=== PATIENT | male | born 1995 | race Caucasian/White ===

== ENCOUNTER 2021-03-18 16:05 | Emergency (ER) | payer OTHER, SELFPAY ==
[2021-03-18 16:12] VITALS: BP 143/88; PULSE 70; RESP 18; TEMP 36.8; O2SAT 95; BMI 21.0
--- NOTE | 2021-03-18 16:22 | W.ED.EXTPRO ---
HPI - Extremity Problem General: Chief complaint: Extremity Problem,Nontraumatic Stated complaint: JAW PAIN, L SHOULDER PAIN/NUMBNESS Time Seen by Provider: 03/18/21 16:20 History of Present Illness: HPI Narrative: Patient is a 25-year-old male comes to the ED with left shoulder blade and left neck/jaw pain. Patient says symptoms started approximately 2 weeks ago. Patient says he works at [employer] and is lifting heavy boxes throughout the day and he thinks that is what potentially caused his pain. He has a history of back pain due to [employer] job and lifting in the past. He says jaw pain only occurs when he is moving his jaw and he has no pain at rest. Associated symptoms: Deny chest pain, fever(s) or rash Review of Systems Const: Denies: fever(s), chills or fatigue Eyes: Denies: change in vision or eye discomfort ENMT: Reports: other (Left side jaw pain); Denies: throat pain, odynophagia, nasal discharge or nasal congestion Card: Denies: chest pain, palpitations, edema, swelling of feet/ankles, dyspnea on exertion or orthopnea Resp: Denies: dyspnea, productive cough or non-productive cough GI: Denies: abdominal pain, nausea, vomiting, diarrhea, constipation or hematochezia : Denies: flank pain, difficulty urinating, dysuria or hematuria Musc: Reports: back pain; Denies: neck pain or extremity swelling Skin/Breast: Denies: rash or new lesions Neuro: Denies: headache(s), numbness in extremities or weakness in extremities Physical Exam Const: COMMON NORMALS: no acute distress, patient oriented x3, healthy appearing and alert GENERAL APPEARANCE: cooperative and comfortable HENMT: COMMON NORMALS: normocephalic HEAD & SCALP: normocephalic MOUTH: Normal oral and palatal mucosa present THROAT: posterior oropharynx normal and uvula midline Neck/C-Spine: COMMON NORMALS: supple GENERAL: Yes normal visual inspection Resp: COMMON NORMALS: normal respiratory effort, No retractions, No use of accessory muscles and clear to auscultation bilaterally AUSCULTATION: clear to auscultation bilaterally Cardio: COMMON NORMALS: regular rate, regular rhythm, S1 normal heart sound present, S2 normal heart sound present, No gallops present (Cardio), No clicks present (Cardio), No murmurs present (Cardio) and Peripheral pulses 2+ throughout RATE: regular rate RHYTHM: regular rhythm HEART SOUNDS: S1 normal heart sound present and S2 normal heart sound present PERIPHERAL PULSES: Peripheral pulses 2+ throughout GI: COMMON NORMALS: Normal to inspection, nondistended, normoactive bowel sounds present, Soft to palpation, non-tender and no masses PALPATION: Yes Soft to palpation : COMMON NORMALS: Yes no CVA tenderness BLADDER/KIDNEY EXAM: Yes no CVA tenderness Back/Pelvis: COMMON NORMALS: no CVA tenderness THORACIC SPINE/UPPER BACK: Yes normal to inspection, Yes pain with ROM, No thoracic spinal tenderness and No paraspinal muscle tenderness Extremity: COMMON NORMALS: normal to inspection Neuro: COMMON NORMALS: patient oriented x3 and moves all extremities SENSORIUM/ORIENTATION: Yes alert Skin: GENERAL SKIN EXAM: dry skin Course Vital Signs: Vital signs: Vital Signs Temperature 98.3 F 03/18/21 16:12 Pulse Rate 70 03/18/21 16:12 Respiratory Rate 18 03/18/21 16:12 Blood Pressure 143/88 03/18/21 16:12 Pulse Oximetry 95 03/18/21 16:12 MDM - Extremity (Nontraumatic) MDM Narrative: Medical decision making narrative: Patient is a 25-year-old male who comes to the ED thoracic back pain and left jaw pain. Patient says both symptoms started 2 weeks ago. His back pain is located on the left thoracic back region he says it is do to lifting boxes at [employer]. Jaw pain only occurs when he is moving jaw and he has no pain when jaw at rest. He denies any other symptoms. Upon exam patient is healthy 25-year-old male in no acute distress or pain. He sitting comfortably on exam chair when entered the room. He has some pain in his left side thoracic back region with range of motion but no point tenderness or spinal tenderness. Patient's left jaw has no palpable clicking or locking upon movement. Patient was diagnosed with left-sided thoracic back pain and jaw pain and he was discharged home with prescription for methocarbamol. He was told to continue taking rhtn-moi-sliwthe ibuprofen to help with pain. Apply cold pack and rest help with symptoms. Patient has follow-up with PCP in 2 weeks. Return to ED precautions given. Patient understood agree with plan. Discharge Plan Discharge Patient Disposition: Home Clinical Impression: Jaw pain Left-sided thoracic back pain Qualifiers: Chronicity: acute Qualified Code(s): M54.6 - Pain in thoracic spine Condition: Stable Prescriptions: New methocarbamol 750 mg tablet 750 mg PO Q8H Qty: 20 RF: 0 Discharge Orders: Discharge ED (Routine); Ordered 03/18/21 Ordered By: John Ceja Discharge Diet: Regular Discharge Activity: Resume usual activity Patient Instructions: Temporomandibular Disorder (ED), Back Pain (ED) Activity Restrictions/Additional Instructions: Follow-up with medical provider as directed in 7 to 10 days for reevaluation. Take medications as prescribed. Methocarbamol is a muscle relaxer and can cause some drowsiness so take at night before bed. Take uivj-rzb-uddrgrg ibuprofen up to 800 mg every 8 hours to help with pain. Apply cold pack on back to help with symptoms. Return to the ER or your medical provider if condition worsens. Please read and understand discharge instructions. If any questions, please ask. Coding Level of Care Code ED Furniture Sales Associate for Daniel Salazar Exam Comprehensive
== END 2021-03-18 16:34 | disposition home or self-care (01) ==
PROVIDERS: Emergency Provider Physician Assistant
DX: R68.84 Jaw pain (principal); M54.6 Pain in thoracic spine
CPT/HCPCS: 99282

== ENCOUNTER 2021-03-26 21:03 | Emergency (ER) | payer OTHER, SELFPAY ==
[2021-03-26 21:07] VITALS: BP 127/80; PULSE 90; RESP 18; TEMP 36.4; O2SAT 100; BMI 21.0
--- NOTE | 2021-03-26 21:23 | ED_ITS ---
HPI - General Adult General: Chief complaint: General Medical Stated complaint: CONVULSING AND SHAKING ON THE GROUND Time Seen by Provider: 03/26/21 21:17 Source: patient Mode of arrival: ambulatory Limitations: no limitations History of Present Illness: HPI narrative: 25-year-old male states he is at work now ago. He states he been working outside started having a seizure. S sahra was witnessed and lasted less than 1 minute. He did have a period of being postictal. He denies any headache and states he feels fine currently. He has never had a seizure in the past. He states he may have been dehydrated because he been working outside all day. Denies any recent injuries. Onset (ago): hour(s) Associated symptoms: Deny chest pain, dyspnea, nausea, rash or vomiting Review of Systems Const: Denies: fever(s), chills, body aches or change in appetite Eyes: Denies: blurry vision or eye discomfort ENMT: Denies: throat pain or dental pain Card: Denies: chest pain Resp: Denies: dyspnea GI: Denies: abdominal pain, nausea, vomiting or diarrhea : Denies: dysuria Musc: Denies: neck pain or back pain Skin/Breast: Denies: rash Neuro: Reports: seizure-like activity Psych: Denies: depression Delbert/Lymph: Denies: easy bruising All/Imm: Denies: urticaria Physical Exam Const: COMMON NORMALS: no acute distress, patient oriented x3 and healthy appearing HENMT: COMMON NORMALS: normocephalic and atraumatic HEAD & SCALP: normocephalic and atraumatic Eye: COMMON NORMALS: Equal, round and reactive pupils present and EOMs intact bilaterally PUPIL: Yes Equal, round and reactive pupils present Neck/C-Spine: COMMON NORMALS: full ROM and supple Chest: COMMONS NORMALS: normal inspection of the chest and normal palpation of entire chest wall Resp: COMMON NORMALS: normal respiratory effort, No retractions, No use of accessory muscles and clear to auscultation bilaterally AUSCULTATION: clear to auscultation bilaterally Cardio: COMMON NORMALS: regular rate, regular rhythm and No murmurs present (Cardio) RATE: regular rate RHYTHM: regular rhythm GI: COMMON NORMALS: Normal to inspection, nondistended, normoactive bowel sounds present, Soft to palpation, non-tender and no masses PALPATION: Yes Soft to palpation Extremity: COMMON NORMALS: normal to inspection and full ROM Neuro: COMMON NORMALS: patient oriented x3, moves all extremities and no focal motor deficits Psych: COMMON NORMALS: mental status grossly normal, Normal thought process present and cooperative THOUGHT PROCESS: Normal thought process present Skin: COMMON NORMALS: no rashes or lesions noted and no wounds GENERAL SKIN EXAM: no rashes or lesions noted Course Vital Signs: Vital signs: Vital Signs Temperature 97.6 F 03/26/21 21:07 Pulse Rate 90 03/26/21 21:07 Respiratory Rate 18 03/26/21 21:07 Blood Pressure 127/80 03/26/21 21:07 Pulse Oximetry 100 03/26/21 21:07 MDM - General Adult MDM Narrative: Medical decision making narrative: Patient presents here with a likely seizure. His CT head here is normal electrolytes are normal. He is stable for discharge. He has not had a seizure in the past. He is to follow-up PCP and return if worsening. Lab Data: Labs: Lab Results 03/26/21 Range/Units 21:43 Sodium 134 L (136-145) mmol/L Potassium 3.9 (3.5-5.1) mmol/L Chloride 101 (98-107) mmol/L Carbon Dioxide 23 (22-29) mmol/L Anion Gap 13.9 (5-19) BUN 22 H (6-20) mg/dL Creatinine 0.8 (0.7-1.2) mg/dL GFR Calculation 119.8 (90-130) mL/min Glucose 83 (65-115) mg/dL Calculated Osmolal ity 280 L (285-295) mOsm/k g Calcium 8.2 L (8.5-10.5) mg/dL Imaging Data^: CT Head: Radiologist's impression: [facility] [address] [place] [address] CT Scan Report Signed Patient: Reuben Delcid Unit #: [id number] : 1995 Age/Sex: 25 / M ADM Date: 03/26/21 Loc: ER Room/Bed: Attending Dr: Ordering Provider/Ordering MD: Jeremias Bain MD Date of Service: 03/26/21 Procedure(s): CT head wo con* [id number] Accession Number(s): [id number] Report Number: [id number] PROCEDURE INFORMATION: Exam: CT Head Without Contrast Exam date and time: 03/26/2021 9:23 PM Age: 25 years old Clinical indication: Patient HX: Witnessed seizure. TECHNIQUE: Imaging protocol: Computed tomography of the head without contrast. Radiation optimization: All CT scans at this facility use at least one of these dose optimization techniques: automated exposure control; mA and/or kV adjustment per patient size (includes targeted exams where dose is matched to clinical indication); or iterative reconstruction. COMPARISON: No relevant prior studies available. RADIATION DOSE METRICS: Total DLP (mGy-cm): 876.1 FINDINGS: Brain: No hemorrhage. No edema, mass effect or midline shift. Cerebral ventricles: No ventriculomegaly. Bones/joints: No acute fracture. Paranasal sinuses: Visualized sinuses are unremarkable. No fluid levels. Mastoid air cells: No mastoid effusion. Soft tissues: Unremarkable. CT/CT head wo con* [id number] IMPRESSION: No acute intracranial abnormality. Discharge Plan Discharge Patient Disposition: Home Clinical Impression: Seizure Condition: Stable Prescriptions: No Action cyclobenzaprine 10 mg tablet 10 mg PO TID PRN (Reason: muscle cramps) RF: 0 bupropion HCl 300 mg Tablet Extended Release 24 Hr 300 mg PO DAILY RF: 0 methocarbamol 750 mg tablet 750 mg PO Q8H Qty: 20 RF: 0 Discharge Orders: Discharge ED (Routine); Ordered 03/26/21 Ordered By: Jeremias Bain Discharge Diet: Advance as tolerated Discharge Activity: Resume usual activity Patient Instructions: New-Onset Seizure in Adults (ED) Coding Level of Care Code ED [employer] for [employer]g Fwd Exam Comprehensive
[2021-03-26 22:04] LABS: Anion Gap 13.9 (5-19); Blood Urea Nitrogen 22 mg/dL (6-20); Calcium 8.2 mg/dL (8.5-10.5); Carbon Dioxide 23 mmol/L (22-29); Chloride 101 mmol/L (98-107); Glomerular Filtration Rate 119.8 mL/min (90-130); Glucose 83 mg/dL (65-115); Osmolality Calculated 280 mOsm/kg (285-295); Potassium 3.9 mmol/L (3.5-5.1); Sodium 134 mmol/L (136-145)
== END 2021-03-26 22:19 | disposition home or self-care (01) ==
PROVIDERS: Emergency Provider Emergency Medicine
DX: R56.9 Unspecified convulsions (principal)
CPT/HCPCS: 70450; 80048; 99282

== ENCOUNTER → 2023-08-05 14:47 | Outpatient (BNVA) | payer OTHER, SELFPAY | PROVIDERS: PCP Emergency Medicine Emergency Medical Services; Referring Provider Emergency Medicine Emergency Medical Services; Visit Provider Nurse Practitioner Family | DX: L65.9 Nonscarring hair loss, unspecified (principal); D22.9 Melanocytic nevi, unspecified; L57.8 Other skin changes due to chronic exposure to nonionizing radiation | CPT/HCPCS: 99203 ==

== ENCOUNTER 2024-02-03 09:26 | Outpatient (CLI) | payer OTHER, SELFPAY ==
[2024-02-03 11:03] LABS: Folate Level 10.4 ng/mL (4.5-32.2)
[2024-02-03 11:05] LABS: 25 Hydroxy Vitamin D 35 ng/mL (30-100); Ferritin 135 ng/mL (30-400); Thyroid Stimulating Hormone 1.97 uIU/mL (0.27-4.20); Vitamin B12 590 pg/mL (232-1245)
[2024-02-03 11:48] LABS: Free T4 Free Thyroxine 1.38 ng/dL (0.82-1.77)
[2024-02-06 12:09] LABS: Vit D 1,25 (Oh)2, Total 33 pg/mL (18-72); Vit D2 1,25 (Oh)2 <8 pg/mL; Vit D3 1,25 (Oh)2 33 pg/mL
[2024-02-07 14:54] LABS: Zinc Level, Serum or Plasma 90 mcg/dL (60-130)
== END 2024-02-03 09:27 | disposition home or self-care (01) ==
LOC: LAB 09:28
PROVIDERS: PCP Emergency Medicine Emergency Medical Services; Visit Provider Nurse Practitioner Family
DX: L65.0 Telogen effluvium (principal); E55.9 Vitamin D deficiency, unspecified; D18.01 Hemangioma of skin and subcutaneous tissue; L57.8 Other skin changes due to chronic exposure to nonionizing radiation; D22.9 Melanocytic nevi, unspecified
CPT/HCPCS: 36415; 82306; 82607; 82652; 82728; 82746; 84439; 84443; 84630; 99214

== ENCOUNTER → 2024-03-10 09:40 | Outpatient (BNVA) | payer OTHER, SELFPAY | PROVIDERS: PCP Emergency Medicine Emergency Medical Services; Visit Provider Nurse Practitioner Family | DX: D48.5 Neoplasm of uncertain behavior of skin (principal); D22.39 Melanocytic nevi of other parts of face; L57.8 Other skin changes due to chronic exposure to nonionizing radiation; L65.9 Nonscarring hair loss, unspecified; L81.4 Other melanin hyperpigmentation | CPT/HCPCS: 11102; 99213 ==

== ENCOUNTER → 2024-08-31 14:40 | Outpatient (BNVA) | payer OTHER, SELFPAY | PROVIDERS: PCP Emergency Medicine Emergency Medical Services; Visit Provider Nurse Practitioner Family | DX: L57.8 Other skin changes due to chronic exposure to nonionizing radiation (principal); D22.39 Melanocytic nevi of other parts of face; L64.8 Other androgenic alopecia | CPT/HCPCS: 99214 ==

== ENCOUNTER 2025-07-26 15:04 | Outpatient (CLI) | payer OTHER, SELFPAY ==
--- NOTE | 2025-07-26 15:12 | US_ITS ---
WS: [id number] TESTICULAR ULTRASOUND HISTORY: LUMP R TESTICLE BASE COMPARISON: None available. TECHNIQUE: Real-time and color Doppler imaging utilized to perform a testicular ultrasound. Right testicle: 4.9 cm x 0.8 cm x 2.4 cm. Normal size and echogenicity. No mass or torsion. Normal color Doppler is present throughout. Systolic and diastolic velocities are both present. No significant hydrocele. Right epididymis: Normal epididymis with no increased vascularity. Left testicle: 5.1 cm x 5.2 cm x 2.2 cm. Normal size and echogenicity. No mass or torsion. Normal color Doppler is present throughout. Systolic and diastolic velocities are both present. No significant hydrocele. Left epididymis: Normal epididymis with no increased vascularity. Prominent pampiniform plexus along the scrotal base. This is probably the palpable abnormality the patient is describing. US/US scrotum [id number] IMPRESSION: NORMAL TESTICULAR ULTRASOUND. Probable pampiniform plexus along the base of the scrotum is probably the palpa ble area the patient is describing. Staying Machine Operator did not have patient do Valsalv a maneuver therefore cannot describe if these are varicoceles.
== END 2025-07-26 15:05 | disposition home or self-care (01) ==
LOC: RAD 15:07
PROVIDERS: Visit Provider Family Medicine Geriatric Medicine
DX: N50.9 Disorder of male genital organs, unspecified (principal)
CPT/HCPCS: 76870